=== PATIENT | female | born 1975 | race Caucasian/White ===

== ENCOUNTER 2020-04-20 21:17 | Emergency (ER) | payer BC ==
--- NOTE | 2020-04-20 21:52 | EDM.PDOC ---
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 She washed her eye out for 10 straight minutes, is still a little blurry so she wanted checked. Mild stinging sensation. Onset: Sudden Duration: Hour(s): (Just under 1 hour ago) Location: Reports: Other Treatments DISABILITY SPECIALIST: Reports: Other (see below) Other Treatments DISABILITY SPECIALIST: flushed out left eye Left Eye Pain Score (Numeric/FACES): 5 - Related Data Allergies Allergy/AdvReac Type Severity Reaction Status Date / Time sesame seed Allergy Anaphylactic Verified 04/20/20 21:35 Shock tree and shrub pollen Allergy Rash Verified 04/20/20 21:35 tree nut Allergy Anaphylactic Verified 04/20/20 21:35 Shock Home Meds: Home Meds buPROPion HCL [Wellbutrin Xl] 300 mg PO DAILY 07/16/18 [History] estradioL [Estradiol] 1.5 mg PO DAILY 07/16/18 [History] Past Medical History HEENT History: Reports: Impaired Vision 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: Reports: Asthma 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: Musculoskeletal History: 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 Psychiatric History: Reports: Depression - Infectious Disease History Infectious Disease History: Reports: Chicken Pox, Shingles - Past Surgical History HEENT Surgical History: Reports: Tonsillectomy GI Surgical History: Reports: Appendectomy, Cholecystectomy Female Surgical History: Reports: Oophorectomy Social & Family History - Tobacco Use Smoking Status *Q: Never Smoker - Caffeine Use Caffeine Use: Reports: Soda - Recreational Drug Use Recreational Drug Use: No ED ROS GENERAL - Review of Systems Review Of Systems: See Below Constitutional: Denies: Fever, Chills HEENT: Reports: Eye Pain, Vision Change (Slight blurry vision in the left eye, stinging sensation) Respiratory: Denies: Shortness of Breath GI/Abdominal: Denies: Nausea, Vomiting Neurological: Denies: Headache ED EXAM GENERAL W FULL EYE - Physical Exam Exam: See Below Exam Limited By: No Limitations General Appearance: Alert, No Apparent Distress Eye Exam: Bilateral Eye: EOMI, PERRL Visual Acuity (R) 20/: 25 Visual Acuity (L) 20/: 30 Eyelids: Bilateral: Normal Appearance Conjunctiva & Sclera: Right: Conjunctival Edema (Slight conjunctival edema and scleral erythema on the left) Cornea Exam: Bilateral: Normal Appearance Head: Atraumatic Respiratory/Chest: No Respiratory Distress Course - Vital Signs Last Recorded V/S: Last Vital Signs Temp 97.9 F 04/20/20 21:35 Pulse 91 04/20/20 21:35 Resp 16 04/20/20 21:35 BP 139/93 H 04/20/20 21:35 Pulse Ox 99 04/20/20 21:35 - Re-Assessments/Exams Free Text/Narrative Re-Assessment/Exam: 04/20/20 21:50 Patient was reassured, he should check with optometry tomorrow if still having symptoms. Departure - Departure Time of Disposition: 21:56 Disposition: Home, Self-Care 01 Clinical Impression: Chemical keratitis - Discharge Information Instructions: Corneal Abrasion, [id number] Referrals: PCP,None [Primary Care Provider] - Forms: ED Department Discharge Care Plan Goals: Ibuprofen or naproxen may be beneficial, and recheck tomorrow if not improving satisfactorily. Sepsis Event Note (ED) - Evaluation Sepsis Screening Result: No Definite Risk - Focused Exam Vital Signs: Vital Signs Temp Pulse Resp BP Pulse Ox 04/20/20 21:35 97.9 F 91 16 139/93 H 99 04/20/20 21:29 97.9 F 91 16 139/93 H 99
== END 2020-04-20 21:56 | disposition home or self-care (01) ==
LOC: JP.ED 21:17
DX: H16.8 Other keratitis (principal); J45.909 Unspecified asthma, uncomplicated; F32.9 Major depressive disorder, single episode, unspecified; Z90.49 Acquired absence of other specified parts of digestive tract; Z91.018 Allergy to other foods; Z91.09 Other allergy status, other than to drugs and biological substances; Z79.899 Other long term (current) drug therapy
CPT/HCPCS: 99283

== ENCOUNTER 2021-05-10 08:14 | Emergency (ER) | payer BC ==
--- NOTE | 2021-05-10 09:06 | EDM.PDOC ---
ED HPI GENERAL MEDICAL PROBLEM - General Chief Complaint: ENT Problem Stated Complaint: ALLERGIC REACTION Time Seen by Provider: 05/10/21 08:40 Source of Information: Reports: Patient, Family History Limitations: Reports: No Limitations - History of Present Illness INITIAL COMMENTS - FREE TEXT/NARRATIVE: 45-year-old female with several days of lightheadedness, mild dry cough, p ossible low-grade fevers and malaise after starting on prednisone several days ago to treat an allergic reaction to some type of tomato sauce. She is not struggling to breathe, denies nausea or vomiting, just a slight redness on the anterior neck but no remnants of her allergic reaction are still bothering her. Onset: Gradual Duration: Day(s): (Symptoms for the last 4 days) Improves with: Reports: None Worsens with: Reports: Other (Seems to be reacting to the prednisone) Associated Symptoms: Reports: Cough, Malaise. Denies: Fever/Chills, Headaches, Shortness of Breath - Related Data Allergies Allergy/AdvReac Type Severity Reaction Status Date / Time sesame seed Allergy Anaphylactic Verified 05/10/21 08:34 Shock tree and shrub pollen Allergy Rash Verified 05/10/21 08:34 tree nut Allergy Anaphylactic Verified 05/10/21 08:34 Shock Home Meds: Home Meds buPROPion HCL [Wellbutrin Xl] 300 mg PO DAILY 07/16/18 [History] estradioL [Estradiol] 1.5 mg PO DAILY 07/16/18 [History] Albuterol Sulfate [Proair Respiclick] 90 mcg IH ASDIRECTED 05/10/21 [History] Cetirizine [ZyrTEC] 10 mg PO DAILY 05/10/21 [History] predniSONE [Prednisone] 40 mg PO DAILY 05/10/21 [History] Past Medical History HEENT History: Reports: Impaired Vision 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: Reports: Asthma 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 Denies: Fever, Chills HEENT: Denies: Throat Pain Respiratory: Reports: Cough. Denies: Shortness of Breath GI/Abdominal: Denies: Nausea, Vomiting Skin: Reports: Rash (Slight erythematous rash on the anterior upper chest) Neurological: Reports: Dizziness. Denies: Headache Psychiatric: Reports: No Symptoms ED EXAM, GENERAL - Physical Exam Exam: See Below Exam Limited By: No Limitations General Appearance: Alert, No Apparent Distress Eye Exam: Bilateral Eye: Normal Inspection Head: Atraumatic Neck: Supple, Non-Tender Respiratory/Chest: No Respiratory Distress, Lungs Clear Cardiovascular: Regular Rate, Rhythm Neurological: Alert, Oriented Psychiatric: Normal Affect, Normal Mood Skin Exam: Warm, Dry, Erythema (Minimal erythema is still present on the anterior upper chest, no papules or palpable lesions) Course - Vital Signs Last Recorded V/S: Last Vital Signs Temp 97.8 F 05/10/21 08:27 Pulse 79 05/10/21 08:27 Resp 16 05/10/21 08:27 BP 149/94 H 05/10/21 08:45 Pulse Ox 96 05/10/21 08:27 - Orders/Labs/Meds Labs: Laboratory Tests 05/10/21 Range/Units 09:06 SARS-CoV-2 RNA ([facility]) Negative (NEGATIVE) - Re-Assessments/Exams Free Text/Narrative Re-Assessment/Exam: 05/10/21 10:19 Covid was checked and was negative, encourage patient to stop the prednisone and increase activity for the next couple of days. She likely has just a mild viral cold which will run its course. Recheck if worsening. Departure - Departure Time of Disposition: 09:10 Disposition: Home, Self-Care 01 Clinical Impression: Bronchitis URI (upper respiratory infection) Qualifiers: URI type: unspecified viral URI Qualified Code(s): J06.9 - Acute upper respiratory infection, unspecified - Discharge Information Instructions: Upper Respiratory Infection, Adult Referrals: PCP,None [Primary Care Provider] - Forms: ED Department Discharge Care Plan Goals: We will be in contact you with your test result, stop the prednisone and increase activity and diet as tolerated. Return anytime if worsening such as shortness of breath, persistent fever or worsening rash. Sepsis Event Note (ED) - Evaluation Sepsis Screening Result: No Definite Risk - Focused Exam Vital Signs: Vital Signs Temp Pulse Resp BP Pulse Ox 05/10/21 08:45 149/94 H 05/10/21 08:27 97.8 F 79 16 166/108 H 96
== END 2021-05-10 09:14 | disposition home or self-care (01) ==
LOC: JP.ED 08:14
DX: J40 Bronchitis, not specified as acute or chronic (principal); J06.9 Acute upper respiratory infection, unspecified; Z91.018 Allergy to other foods; Z91.09 Other allergy status, other than to drugs and biological substances; Z20.822 Contact with and (suspected) exposure to COVID-19
CPT/HCPCS: 99284; U0002

== ENCOUNTER 2021-05-17 21:34 | Emergency (ER) | payer BC ==
--- NOTE | 2021-05-17 22:30 | EDM.PDOC ---
ED HPI GENERAL MEDICAL PROBLEM - General Chief Complaint: Allergic Reaction Stated Complaint: HIVES- ITCHING-SHAKEY Time Seen by Provider: 05/17/21 21:51 Source of Information: Reports: Patient History Limitations: Reports: No Limitations - History of Present Illness INITIAL COMMENTS - FREE TEXT/NARRATIVE: Lorin is a 45-year-old female presenting to the ED for evaluation of possible food allergy. She reports that she ate 2 cheeseburgers and fries at [id number] and very quickly started developing some swelling and redness under the chin and in the neck followed by increased throat pain and swelling. She denied any significant shortness of breath but did have rhinorrhea and a cough causing throat irritation. She quickly took Benadryl 50 mg by mouth and upon arrival to the ED her symptoms have completely abated. Patient recalls that she has had reactions to everything she has eaten over the last 2 weeks. The common denominator seems to be bread or bread products raising the concern that this may be a gluten allergy. She already has an allergy to nuts and certain foods including sesame seeds. She is scheduled to see an lcsw in June. She has been taking Benadryl on a regular basis due to the allergies. She was on prednisone 2 weeks ago which seemed to exacerbate her food allergies even more. She does have an EpiPen but is reluctant to use it. - Related Data Allergies Allergy/AdvReac Type Severity Reaction Status Date / Time sesame seed Allergy Anaphylactic Verified 05/10/21 08:34 Shock tree and shrub pollen Allergy Rash Verified 05/10/21 08:34 tree nut Allergy Anaphylactic Verified 05/10/21 08:34 Shock Home Meds: Home Meds buPROPion HCL [Wellbutrin Xl] 300 mg PO DAILY 07/16/18 [History] estradioL [Estradiol] 1.5 mg PO DAILY 07/16/18 [History] Albuterol Sulfate [Proair Respiclick] 90 mcg IH ASDIRECTED 05/10/21 [History] Cetirizine [ZyrTEC] 10 mg PO DAILY 05/10/21 [History] predniSONE [Prednisone] 40 mg PO DAILY 05/10/21 [History] Past Medical History HEENT History: Reports: Impaired Vision 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: Reports: Asthma Genitourinary History: Reports: None 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: 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 Psychiatric History: Reports: Depression - Infectious Disease History Infectious Disease History: Reports: Chicken Pox, Shingles - Past Surgical History HEENT Surgical History: Reports: Tonsillectomy GI Surgical History: Reports: Appendectomy, Cholecystectomy Female Surgical History: Reports: Oophorectomy Social & Family History - Caffeine Use Caffeine Use: Reports: Soda ED ROS ALLERGIC REACTION - Review of Systems Review Of Systems: See Below Constitutional: Reports: No Symptoms HEENT: Reports: Rhinitis, Throat Pain (Throat irritation) Respiratory: Reports: Cough Cardiovascular: Reports: No Symptoms Endocrine: Reports: No Symptoms GI/Abdominal: Reports: Abdominal Pain (Mild upset stomach), Nausea, Vomiting : Reports: No Symptoms Musculoskeletal: Reports: No Symptoms Skin: Reports: Urticaria (On the neck with erythema) Neurological: Reports: No Symptoms Psychiatric: Reports: No Symptoms Hematologic/Lymphatic: Reports: No Symptoms Immunologic: Reports: Food Allergy ED EXAM GENERAL NO PERIP PULSE - Physical Exam Exam: See Below Exam Limited By: No Limitations General Appearance: Alert, No Apparent Distress Eye Exam: Bilateral Eye: EOMI, PERRL Throat/Mouth: Normal Inspection, Normal Voice, No Airway Compromise, Other (Mild erythema in the retropharynx. Tonsils are surgically absent.) Head: Atraumatic, Normocephalic Neck: Normal Inspection, Supple, Non-Tender, Full Range of Motion, Other (No evidence for urticaria at this time) Respiratory/Chest: No Respiratory Distress, Lungs Clear, Normal Breath Sounds. No: Crackles, Rales, Rhonchi, Wheezing Cardiovascular: Normal Peripheral Pulses, Regular Rate, Rhythm, No Murmur GI/Abdominal: Normal Bowel Sounds, Soft, Non-Tender Neurological: Alert, Oriented, Normal Cognition, No Motor/Sensory Deficits Skin Exam: Warm, Dry, Intact, Normal Color, No Rash Course - Vital Signs Last Recorded V/S: Last Vital Signs Temp 36.6 C 05/17/21 21:56 Pulse 114 H 05/17/21 21:56 Resp 16 05/17/21 21:56 BP 158/93 H 05/17/21 21:56 Pulse Ox 98 05/17/21 21:56 Departure - Departure Time of Disposition: 22:34 Disposition: Home, Self-Care 01 Clinical Impression: Food allergic skin reaction, Gluten intolerance, Urticaria - Discharge Information Instructions: Allergies, Adult, Hives Referrals: Fidel Baca MD [Primary Care Provider] - Care Plan Goals: Based on what you have told me today, it suggest strongly that you have food allergies that may include gluten. I have given you information on a gluten- free diet. I am able to do one test to check for celiac sprue, however, it alone will not make the diagnosis as there are additional tests that need to be done in addition to this so I believe following up with your primary provider to get the full panel is probably the best approach. In the meantime, I would recommend a trial of avoiding gluten and doing a dietary diary to see if there is any other possible food items that may be contributing to your allergic response. Certainly I would recommend keeping Benadryl on hand at all times. One other thing, urticaria in and of itself can be related to a stress reaction and not an allergy and the redness and swelling of your neck is directly related to urticaria. Certainly if you have any other significant return of symptoms return to the ED for evaluation and treatment but at this time there is nothing I can treat. Sepsis Event Note (ED) - Evaluation Sepsis Screening Result: No Definite Risk - Focused Exam Vital Signs: Vital Signs Temp Pulse Resp BP Pulse Ox 05/17/21 21:56 36.6 C 114 H 16 158/93 H 98 05/17/21 21:53 36.6 C 114 H 16 158/93 H 98 - Problem List & Annotations (1) Food allergic skin reaction SNOMED Code(s): 749063038 Code(s): L27.2 - DERMATITIS DUE TO INGESTED FOOD Status: Acute Priority: Low Current Visit: Yes (2) Gluten intolerance SNOMED Code(s): 134663295 Code(s): K90.41 - NON-CELIAC GLUTEN SENSITIVITY Status: Acute Priority: Low Current Visit: Yes (3) Urticaria SNOMED Code(s): 725049945 Code(s): L50.9 - URTICARIA, UNSPECIFIED Status: Acute Priority: Low Current Visit: Yes - Problem List Review Problem List Initiated/Reviewed/Updated: Yes
== END 2021-05-17 23:30 | disposition home or self-care (01) ==
LOC: JP.ED 21:34
DX: T78.1XXA Other adverse food reactions, not elsewhere classified, initial encounter (principal); Z91.018 Allergy to other foods; Z91.09 Other allergy status, other than to drugs and biological substances
CPT/HCPCS: 99283